=== PATIENT | female | born 1940 | race African-American/Black ===

== ENCOUNTER 2019-01-31 13:04 | Outpatient (CLI) | payer MEDICARE, MEDICAID ==
--- NOTE | 2019-01-31 17:21 | RAD ---
RIGHT HIP 2 TO 3 VIEW SERIES: INDICATION: Pain. FINDINGS: There is severe osteoarthritis of the right hip. Heterotopic density is seen about the right hip. N o acute fracture is evident. Phleboliths overlie the pelvis. IMPRESSION: 1. Severe osteoarthritis of the right hip. 2. No acute fracture or dislocation identified. POS: C
== END 2019-01-31 13:05 | disposition home or self-care (01) ==
LOC: RAD-FRANK 13:04
PROVIDERS: ATTEND Internal Medicine
DX: M25.551 Pain in right hip (principal); M16.11 Unilateral primary osteoarthritis, right hip

== ENCOUNTER 2022-08-17 09:42 | Outpatient (CLI) | payer MEDICARE, MEDICAID | END 2022-08-17 09:43 | disposition home or self-care (01) | LOC: BICMAMMO 09:42 | PROVIDERS: ATTEND Nurse Practitioner Family | DX: Z12.31 Encounter for screening mammogram for malignant neoplasm of breast (principal); Z78.0 Asymptomatic menopausal state; Z98.890 Other specified postprocedural states; Z85.3 Personal history of malignant neoplasm of breast | CPT/HCPCS: 77063; 77067; 77080 ==

== ENCOUNTER 2022-09-12 09:29 | Outpatient (CLI) | payer MEDICARE, MEDICAID | END 2022-09-12 09:30 | disposition home or self-care (01) | LOC: BICMAMMO 09:29 | PROVIDERS: ATTEND Nurse Practitioner Family | DX: R92.8 Other abnormal and inconclusive findings on diagnostic imaging of breast (principal); N63.20 Unspecified lump in the left breast, unspecified quadrant | CPT/HCPCS: 76642; 77065; G0279 ==

== ENCOUNTER → 2022-10-03 | Day surgery (SDC) | payer MEDICARE, MEDICAID | END | disposition home or self-care (01) | LOC: BICULT 09-22 12:20 | PROVIDERS: ATTEND Nurse Practitioner Family | DX: R92.8 Other abnormal and inconclusive findings on diagnostic imaging of breast (principal); Z53.9 Procedure and treatment not carried out, unspecified reason ==

== ENCOUNTER → 2022-10-17 | Day surgery (SDC) | payer MEDICARE, MEDICAID | END | disposition home or self-care (01) | LOC: MAMMO 07:03 | PROVIDERS: ATTEND Nurse Practitioner Family | PROC: 0H9U3ZX Drainage of Left Breast, Percutaneous Approach, Diagnostic (ICD-10-PCS; principal; 2022-10-17) | DX: C50.812 Malignant neoplasm of overlapping sites of left female breast (principal) | CPT/HCPCS: 19081; A4648; 88305; 88341; 88342; 88361 ==